=== PATIENT | female | born 1960 | race Caucasian/White ===

== ENCOUNTER 2016-12-02 09:55 | Emergency (ER) | payer MEDICARE, OTHER ==
[~2016-12-02] VITALS: Wt 54.5 kg
[~2016-12-02 09:55] MED LIST: ALPR0.254 PO; AMLO5TAB4 PO; ASPI-664 PO; LISI10TA2 PO; MEGE400O PO
[2016-12-02] MEDS ORDERED: BUPIVACAINE 0.25% (MPF) 10 ML 10 ML VIAL INJ ONE (12:00)
[2016-12-02] MEDS ORDERED: CYCL-319 PO (13:03)
[2016-12-02 13:20] VITALS: BP 139/75; PULSE 78; RESP 16; TEMP 98.2
--- NOTE | 2016-12-02 13:49 | ERD ---
ER Documentation Chief Complaint Date/Time DATE: 12/02/16 TIME: 13:37 Chief Complaint low backpain for thepast few weeks. limited walking, no recent trauma HPI 56-year-old female with history of scoliosis and chronic back pain presents to ED today complaining of left-sided lower back pain for last several weeks. The pain got worse yesterday, she feels like she is not able to walk properly. Describes pain as shooting pain from the left buttock down the back side of her leg. 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 Denies falls or heavy lifting. Denies any other trauma. Denies saddle paresthesia. Denies bowel or bladder dysfunction. ROS All systems reviewed and are negative except as per history of present illness. Medications Home Meds Active Scripts Cyclobenzaprine Hcl* (Cyclobenzaprine Hcl*) 10 Mg Tablet, 10 MG PO TID, #15 TAB Prov:EVERETT MARCANO. AT RISK PARAPROFESSIONAL 12/02/16 Megestrol Acetate* (Megace*) 400 Mg/10 Ml Oral.susp, 800 MG PO DAILY, #600 ML Prov:EVERETT MARCANO. AT RISK PARAPROFESSIONAL 12/19/15 Reported Medications Lisinopril* (Lisinopril*) 10 Mg Tablet, 10 MG PO QHS, #30 TAB 04/16/16 Lisinopril* (Lisinopril*) 10 Mg Tablet, 10 MG PO DAILY, #30 TAB 04/16/16 Aspirin* (Aspirin* EC) 81 Mg Tablet.dr, 81 MG PO DAILY, TAB 04/16/16 Amlodipine Besylate* (Norvasc*) 5 Mg Tablet, 5 MG PO DAILY, TAB 04/16/16 Alprazolam* (Alprazolam*) 0.25 Mg Tablet, 0.25 MG PO Q8, TAB 04/16/16 Allergies Allergies: Coded Allergies: No Known Drug Allergies (Verified Allergy, Unknown, 12/02/16) PMhx/Soc History of Surgery: Yes (BILAT INGUINAL HERNIA REPAIR, BLADDER LIFT, MULTIPLE CYSTS REMOVED ) Anesthesia Reaction: Yes (CONFUSION/ALTERED MENTAL STATUS) Hx Neurological Disorder: Yes (TODDLER CONVULSIONS) Hx Respiratory Disorders: No Hx Cardiac Disorders: Yes (ATHEROSCLEROSIS-NEGATIVE TESTS/SAW CIGAR WRAPPER) Hx Psychiatric Problems: No Hx Miscellaneous Medical Probl: Yes (ANEMIA) Hx Alcohol Use: No Hx Substance Use: No Hx Tobacco Use: Yes Smoking Status: Current every day smoker Physical Exam Vitals Vital Signs Date Time Temp Pulse Resp B/P Pulse Ox O2 Delivery O2 Flow Rate FiO2 12/02/16 13:20 98.2 78 16 139/75 97 Room Air 12/02/16 10:08 98.5 91 20 170/81 95 Physical Exam General impression: Well-developed, well-nourished, 56-year-old female, alert, oriented, in no acute distress Head: Normocephalic, atraumatic. Respiration: Normal respiratory effort. Lungs clear to auscultate bilaterally. No wheezes, rales or rhonchi. Cardiovascular: Regular rate and rhythm. No murmurs or extra heart sounds. Back: Marked scoliosis noted. Left gluteal muscle spasm noted with tender to palpation. Straight leg raise negative Neuro: Mental status normal, speech normal. Skin: Normal turgor. No rash or lesions. Psych: Normal mood and affect. Results 24 hrs Current Medications Medications (Trade) Dose Ordered Sig/Mary Route PRN Reason Start Time Stop Time Status Last Admin Dose Admin Bupivacaine HCl (Marcaine 0.25% (Mpf) 10 ml) 10 ml ONCE ONCE INJ 12/02/16 12:00 12/02/16 12:01 DC Procedures/MDM Procedure note: Trigger point injection Trigger point injection performed by me. 10 mL of bupivacaine is injected into left buttock. Total number muscle groups injected: 1. Patient reports improvement of pain after the trigger point injection. 56-year-old female with history of chronic low back pain presents to ED with new onset sciatic pain on her left side. Likely her sided pain is secondary to muscle spasm in her left buttock. Low suspicion for spinal fracture, disc herniation, spinal epidural abscess or equinus syndrome. Patient is encouraged to follow-up with all her referrals. Patient appears well, stable for discharge and outpatient management. Medical decision making shared with patient and family. Education provided to patient and family. Patient and family expressed understanding of the plan. Medications on discharge: Flexeril. Follow-up: Primary care provider in 2-3 days or return to ED if worse. Departure Diagnosis: Primary Impression: Back spasm Condition: Stable Patient Instructions: Back Spasm, No Trauma Referrals: RENAE COREY Additional Instructions: Call your primary care doctor TOMORROW for an appointment during the next 2-3 days.See the doctor sooner or return here if your condition worsens before your appointment time. EVERETT MARCANO NP Dec 02, 2016 13:48
== END 2016-12-02 13:22 | disposition home or self-care (01) ==
LOC: FTE 09:55
DX: M62.830 Muscle spasm of back (principal); F17.210 Nicotine dependence, cigarettes, uncomplicated; Z79.82 Long term (current) use of aspirin